=== PATIENT | female | born 1985 | race Caucasian/White ===

== ENCOUNTER 2018-04-10 19:40 | Emergency (ER) | payer SELFPAY ==
[2018-04-10 19:40] VITALS: BP 146/94; PULSE 92; RESP 18; TEMP 36.7; O2SAT 95; BMI 37.5
--- NOTE | 2018-04-10 21:09 | ED.VISSUMM ---
- ER Visit Summary Date of Service: 04/10/18 Chief Complaint: exposure to a rabid bat History of Present Illness: The patient is a 33yF who presents with family for rabies prophylaxis after exposure to a bat that tested positive for rabies. On Saturday (three days prior), the family found a bat in the common bathroom, with all family members having been in the bathroom with the bat at some point. Bat was caught by a household member and sent for testing, which returned positive for rabies. Patient has no known bite gibbons. Patient has complaint of mild headaches since exposure, which she attributes to stress. Physical Examination: Vital signs reviewed. Patient afebrile and hemodynamically stable. Well-nourished well-developed sitting in the exam room, no distress. Skin warm and dry, no rash noted. Heart regular rate and rhythm without murmur. Lungs are clear to auscultation bilaterally. No focal neuro deficits. Remainder of exam unremarkable. Test Results: [] Emergency Department Course and Treatment: Given the exposure to a rabid bat in the same room/house, patient received rabies immunoglobulin and the first of the vaccine series. Instructions given for the remainder of the vaccination series. Patient discharged home. Treatment Plan: [] Disposition: discharge home Impression: Exposure to rabid bat, administration of rabies IgG and administration of Day 0 vaccine This note was generated with [employer] dictation software. It may contain incorrect words, spelling, and punctuation that were not noted in review of the chart prior to signing ED Disposition - Plan for ED Patient: Disposition: Home or Assisted Living Chief Complaint: Bite Instructions: Rabies Immune Globulin (Human) Solution for injection, Animal Bites and Scratches Referrals: Nga Austin DO [Primary Care Provider] - As Needed Additional Instructions: Make sure to complete the entire rabies vaccination series as you were instructed and as outlined on your paperwork. If you have any worsening of your condition or any new concerning symptoms, please return immediately to the emergency department for another evaluation.
--- NOTE | 2018-04-10 21:09 | ED.DEP ---
ED Disposition - Plan for ED Patient: Disposition: Home or Assisted Living Chief Complaint: Bite Instructions: Animal Bites and Scratches, Rabies Immune Globulin (Human) Solution for injection Referrals: Nga Austin DO [Primary Care Provider] - As Needed Additional Instructions: Make sure to complete the entire rabies vaccination series as you were instructed and as outlined on your paperwork. If you have any worsening of your condition or any new concerning symptoms, please return immediately to the emergency department for another evaluation.
[2018-04-10] MEDS: Rabies Vaccine,Human Diploid 2.5 UNITS Vial IM (21:58)
[2018-04-10] MEDS: Rabies Immune Globulin 150 UNITS/ML 2170 UNITS IM (22:01)
[2018-04-10 22:43] VITALS: BP 138/80; PULSE 78; RESP 16; O2SAT 97
== END 2018-04-10 22:44 | disposition home or self-care (01) ==
PROVIDERS: Emergency Provider Emergency Medicine; Family Provider Family Medicine; PCP Family Medicine
DX: Z20.3 Contact with and (suspected) exposure to rabies (principal); R51 Headache; F41.9 Anxiety disorder, unspecified; F32.9 Major depressive disorder, single episode, unspecified; Z79.899 Other long term (current) drug therapy
CPT/HCPCS: 90375; 90675; 99281

== ENCOUNTER → 2018-04-13 13:20 | Outpatient (CLI) | payer SELFPAY ==
[2018-04-13] MEDS: Rabies Vaccine,Human Diploid 2.5 UNITS Vial IM (13:11)
== END ==
PROVIDERS: Family Provider Family Medicine; PCP Family Medicine
DX: Z23 Encounter for immunization (principal)
CPT/HCPCS: 90675

== ENCOUNTER 2018-04-17 09:18 | Outpatient (CLI) | payer OTHER, SELFPAY ==
[2018-04-17 09:32] VITALS: BP 129/74; PULSE 68; RESP 15; TEMP 36.3; O2SAT 98; BMI 36.4
[2018-04-17] MEDS: Rabies Vaccine,Human Diploid 2.5 UNITS Vial IM (10:53)
== END 2018-04-17 11:13 | disposition home or self-care (01) ==
LOC: ED 12:36
PROVIDERS: Family Provider Family Medicine; PCP Family Medicine
DX: Z23 Encounter for immunization (principal)
CPT/HCPCS: 90675; 96372

== ENCOUNTER → 2018-04-24 21:25 | Outpatient (CLI) | payer SELFPAY ==
[2018-04-24 20:47] VITALS: BP 120/75; PULSE 82; RESP 18; TEMP 36.7; O2SAT 99; BMI 33.4
[2018-04-24] MEDS: Rabies Vaccine,Human Diploid 2.5 UNITS Vial IM (21:49)
== END ==
PROVIDERS: Family Provider Family Medicine; PCP Family Medicine; Visit Provider Emergency Medicine
DX: Z23 Encounter for immunization (principal)
CPT/HCPCS: 90675

== ENCOUNTER → 2019-01-07 | Outpatient (CLI) | payer MEDICAID, SELFPAY ==
[2019-01-07 12:41] LABS: Absolute Lymphocyte Count 2.44 X10^3/ul (0.83-4.51); Absolute Neutrophil Count 4.6 X10^3/uL (2.0-7.7); Basophil# 0.02 X10^3/uL; Basophil% 0.3 % (0-1); Eosinophil# 0.35 X10^3/uL; Eosinophils% 4.4 % (0-5); Hematocrit 41.8 % (37-47); Hemoglobin 13.9 g/dl (12.0-15.0); Lymphocyte # 2.44 X10^3/ul (4.0); Lymphocyte % 30.7 % (19-41); Mean Corp Hgb Conc 33.3 g/gl (32-36); Mean Corpuscular Hgb 27.8 pg (27.0-32.0); Mean Corpuscular Volume 83.6 fL (81-99); Mean Platelet Vol. 9.7 fl (6.2-12.0); Monocyte# 0.52 X10^3/uL; Monocyte% 6.5 % (0-10); Platelet Count 358 K/mm3 (150-450); RBC Distribution Width SD 39.6 fl (35.1-43.9); White Blood Count 7.9 K/mm3 (4.4-11.0)
[2019-01-07 12:50] LABS: POSITIVE COUNT NO; POSITIVE DIFFERENTIAL NO; POSITIVE MORPHOLOGY NO
[2019-01-07 12:53] LABS: hCG Titer Quant., Serum < 1 mIU/mL (1-3)
[2019-01-07 12:59] LABS: Progesterone Level 0.43 ng/mL (See Comment)
[2019-01-07 13:00] LABS: Estradiol 32.6 pg/mL; Follicle Stimulating Hormone 8.5 mIU/mL; Free T3 2.6 pg/mL (2.18-3.98); Luteinizing Hormone 9.9 mIU/mL; T4 Free Direct 0.79 ng/dL (0.76-1.46); Thyroid Stim Hormone (TSH) 2.28 uIU/mL (0.358-3.74)
== END | disposition home or self-care (01) ==
PROVIDERS: Family Provider Family Medicine; PCP Family Medicine; Visit Provider Family Medicine
DX: N92.0 Excessive and frequent menstruation with regular cycle (principal); N93.8 Other specified abnormal uterine and vaginal bleeding; R53.83 Other fatigue
CPT/HCPCS: 36415; 82670; 83001; 83002; 84144; 84439; 84443; 84481; 84702; 85025

== ENCOUNTER → 2019-01-14 | Outpatient (CLI) | payer MEDICAID, SELFPAY ==
--- NOTE | 2019-01-14 12:24 | US_ITS ---
STUDY: ULTRASOUND OF THE FEMALE PELVIS - COMPLETE REASON FOR EXAM: Female, 33 years old. Heavy bleeding LMP: 11/17/2018 TECHNIQUE: Transabdominal and Transvaginal TECHNICAL QUALITY: Adequate. COMPARISON: None. FINDINGS: The uterus is anteverted and is in a midline position. The uterus measures 7.9 x 4.4 x 3.4 cm. Normal uterine cervix. The endometrium measures 7 mm in thickness, and is hyperechoic. There is no demonstrated endometrial mass. There is no demonstrated myometrial mass. I.U.D. - The patient does not have an I.U.D. The right ovary is visualized. The right ovary measures 3.3 x 2.9 x 2.3 cm. There is no right ovarian cyst or ovarian mass. There is no visualized right adnexal mass or complex lesion. There is normal arterial and normal venous vascularity. The left ovary is visualized. The left ovary measures 3.6 x 2.3 x 1.8 cm. There is no left ovarian cyst or ovarian mass. There is no visualized left adnexal mass or complex lesion. There is normal arterial and normal venous vascularity. There is minimal fluid in the cul-de-sac. The bladder is sonographically normal US/Pelvic (Non ) IMPRESSION: No suspicious sonographic findings Electronically Signed: Cj Alonso MD at 21:15 EDT , Service support ,
--- NOTE | 2019-01-14 12:47 | US_ITS ---
STUDY: ULTRASOUND OF THE FEMALE PELVIS - COMPLETE REASON FOR EXAM: Female, 33 years old. Heavy bleeding LMP: 11/17/2018 TECHNIQUE: Transabdominal and Transvaginal TECHNICAL QUALITY: Adequate. COMPARISON: None. FINDINGS: The uterus is anteverted and is in a midline position. The uterus measures 7.9 x 4.4 x 3.4 cm. Normal uterine cervix. The endometrium measures 7 mm in thickness, and is hyperechoic. There is no demonstrated endometrial mass. There is no demonstrated myometrial mass. I.U.D. - The patient does not have an I.U.D. The right ovary is visualized. The right ovary measures 3.3 x 2.9 x 2.3 cm. There is no right ovarian cyst or ovarian mass. There is no visualized right adnexal mass or complex lesion. There is normal arterial and normal venous vascularity. The left ovary is visualized. The left ovary measures 3.6 x 2.3 x 1.8 cm. There is no left ovarian cyst or ovarian mass. There is no visualized left adnexal mass or complex lesion. There is normal arterial and normal venous vascularity. There is minimal fluid in the cul-de-sac. The bladder is sonographically normal US/Transvaginal Non- IMPRESSION: No suspicious sonographic findings Electronically Signed: Cj Alonso MD at 21:15 EDT , Service support ,
== END | disposition home or self-care (01) ==
LOC: US 12:23
PROVIDERS: Family Provider Family Medicine; PCP Family Medicine; Referring Provider Family Medicine; Visit Provider Family Medicine
DX: N92.0 Excessive and frequent menstruation with regular cycle (principal); N93.8 Other specified abnormal uterine and vaginal bleeding
CPT/HCPCS: 76830; 76856; 93976

== ENCOUNTER → 2019-07-03 14:09 | Outpatient (CLI) | payer MEDICAID, SELFPAY ==
[2019-07-03 10:47] VITALS: BMI 38.2
[2019-07-03 14:39] LABS: Red Blood Cells-Urine 0 SEEN /hpf (0-5)
[2019-07-03 15:02] LABS: Color, Urine Yellow (Yellow); Glucose, Dipstick Normal (Normal); Ketone-Dipstick Negative (Negative); Leukocyte Esterase-Dipstick 25 /ul (Negative); Nitrite-Dipstick Negative (Negative); Occult Blood-Urine Negative /ul (Negative); Protein-Dipstick Negative (Negative); Urine Bilirubin Dipstick Negative (Negative); Urine Clarity Sl. Cloudy (Clear); Urine Urobilinogen Normal (Normal)
[2019-07-03 15:09] LABS: Bacteria 1+ /hpf (None Seen); Mucous, Urine 1+ /hpf (<or=2+); Squamous Epithelial Cells - UA 0-5 SEEN /hpf (5-10); White Blood Cells 0-5 SEEN /hpf (0-5)
== END ==
PROVIDERS: Family Provider Family Medicine; PCP Family Medicine; Referring Provider Nurse Practitioner Family; Visit Provider Nurse Practitioner Family
DX: M54.5 Low back pain (principal)
CPT/HCPCS: 81001; 87086; 87088

== ENCOUNTER → 2019-07-13 13:00 | Outpatient (CLI) | payer MEDICAID, SELFPAY ==
[2019-07-09 12:09] VITALS: BMI 38.2
--- NOTE | 2019-07-13 13:03 | RAD_ITS ---
STUDY: X-RAY - LUMBAR SPINE REASON FOR EXAM: Female, 34 years old. Pain. TECHNIQUE: 5 view(s) of the lumbar spine were obtained. COMPARISON: None FINDINGS: Normal lumbar lordosis. There is no substantial scoliosis. There is a normal alignment of the vertebrae. Normal vertebral bodies and endplates. Normal disc space heights. There is no demonstrated fracture. There is no demonstrated spondylolysis of the pars interarticulares. The soft tissue structures are unremarkable. RAD/L/S Spine Min 4 Views IMPRESSION: Normal x-ray examination of the lumbar spine. Electronically Signed: Jillian Fierro MD at 2:33 EST , Service support ,
--- NOTE | 2019-07-13 13:03 | RAD_ITS ---
STUDY: X-RAY - THORACIC SPINE REASON FOR EXAM: Female, 34 years old. Pain. TECHNIQUE: 2 view(s) of the thoracic spine were obtained. COMPARISON: None. FINDINGS: Normal kyphosis of the thoracic spine. There is no substantial scoliosis. Normal thoracic vertebrae and endplates. Normal disc space heights. The soft tissue structures are unremarkable. RAD/Thoracic Spine 3 Views IMPRESSION: Normal x-ray examination of the thoracic spine. Electronically Signed: Jillian Fierro MD at 2:33 EST , Service support ,
== END ==
PROVIDERS: Family Provider Family Medicine; PCP Family Medicine; Referring Provider Family Medicine; Visit Provider Family Medicine
DX: M54.5 Low back pain (principal)
CPT/HCPCS: 72072; 72110

== ENCOUNTER 2019-09-08 10:30 | Outpatient (RCR) | payer MEDICAID, SELFPAY ==
[2019-07-09 12:09] VITALS: BMI 38.2
--- NOTE | 2019-07-23 10:57 | HP.PTEVAL_ITS ---
Patient's Visit Information LAURA MANE is a 34 year old F referred to Physical Therapy by Nga Austin DO with a diagnosis of LBP. Date of Evaluation: 07/23/19 Physical Therapist: Gypsy Mccurdy, PT, Cert MDT - Visit Plan Frequency: 2-3x /Week Duration: 4-6 Weeks Plan: AQUATIC THERAPY FOR PAIN RELIEF, POSTURE CORRECTION/STRENGTHENING, INSTRUCTION IN APPROPRIATE BODY MECHANICS AND ACTIVITY MODIFICATIONS. DLS STARTING WITH A NEUTRAL SPINE PROGRESSING ROM TOLERATED. NALLELY LE ROM, STRETCHING AND STRENGTHENING. HEP INSTRUCTION. 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 A LOT OF TRANSFERS. 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 CHILDREN ARE 4 AND 14. Disability: NO. Present symptoms: LOW BACK PAIN THAT RADIATES UP BACK AND DOWN HER LEGS. NALLELY BUTTOCK, NALLELY THIGH LEFT > RIGHT. NALLELY LE NUMBNESS AND TINGLING AND RLS. Present since: ABOUT A YEAR AGO. Pain Scale: WORST 9/10, L EAST 3/10. Currently: 6/10. Commenced as a result of: NO APPARENT REASON. Symptoms at onset: LOW BACK. Worse: PICKING UP 5 YEAR OLD, CARETAKING OF 89 YEAR OLD, BENDING, LIFTING, PUSHING, PULLING. Better: PUSHING ON LOW BACK, MORE ERECT POSTURE WITH SUPPORT. REST FROM WORK (WORKS 7 DAYS A WEEK). Disturbed sleep: YES. Previous history/Previous treatment: LOW BACK PAIN SINCE A TEENAGER. PRESCRIPTION MEDICATIONS INCLUDING STEROIDS. NO BACK SURGERY, PT, INJECTIONS OR CHIROPRACTOR. MAILY SELF MANAGED. Coughing/sneezing/straining: POSITIVE. Gait: NORMAL. Difficulty initiating urinatin: YES - SOMETIMES FOR ABOUT A YEAR - PATIENT REPORTS SHE WILL LET HER DOCTOR KNOW. Accidents: NO. Unexplained weight loss: NO. Imaging: LUMBAR X-RAYS LAST WEEK - NORMAL. PMH: UTERINE WALL THICKENING - UNDER PHYSICIAN CARE. ANXIETY AND DEPRESSION. - Objective Sitting/Standing Posture: POOR. Lordosis: NORMAL. Lateral shift: NO. Relevant shift: N/A. Active Correction of posture: BETTER. Other Observations: INDEP GAIT AND TRANSFERS. Motor deficit: NALLELY LE'S 5/5. Sensory deficit: NALLELY LE LIGHT TOUCH SENSATION INTACT AND SYMMETRICAL BUT REPORTS NALLELY ANKLE TINGLING. ROM deficit: NALELLY LE'S WFL'S. Reflexes: NALLELY LE'S 2/3. Dural Signs: NEGATIVE NALLELY LE'S. Lumbar mvmt loss: flex - NIL - INCREASED PAIN GOING DOWN AND UP. ext - MIN - INCREASES BACK PAIN. R SG - NIL. L SG - NIL. Core strength: POOR. Palpation: TENDERNESS THROUGHOUT LOWER THORACIC AND LUMBAR REGIONS INTO SACRAL, PELVIC AND BUTTOCK REGIONS. - Goals Goal 1:: DECREASE C/O BACK AND NALLELY LE SX'S. Goal Time Frame: 4-6 Weeks Goal 2:: IMPROVE BENDING, REACHING, LIFTING, PUSHING, PULLING, SLEEP, SOCIAL LIFE AND WORK FUNCTION Goal Time Frame: 4-6 Weeks Goal 3:: INSTRUCT IN PROPHYLAXIS Goal Time Frame: 4-6 Weeks - Rehabilitation Potential Rehabilitation Potential: Fair - Anticipated Interventions Patient/Client Instruction: Educate patient on: Condition, Plan of Care, Risk Factors, Benefits of Fitness Program For the Purpose of:: To improve self management Therapeutic Exercise to Include: Strength training, Body mechanics, Postural training, Dynamic Lumbar Stabilization For the Purpose of:: To decrease pain, To improve muscle performance and motor function, To increase tolerance to activity/condition/position, To improve ability of physical actions for home/community/work/leisure, To improve gait and locomotor functions Thank you for the opportunity to evaluate your patient. For Medicare and Medicare HMO plans, please review the plan of care and approve it. It will need to be FAXED BACK to us at [phone] for Medicare purposes. For Medicare only, by signing this I certify the plan of care. Please let me know if there are questions or concerns regarding this plan of care. Physician Signature:_ Date:
--- NOTE | 2019-08-24 12:03 | HP.PTREVAL ---
Nga Austin, DO, It has been my pleasure to treat LAURA MANE over the last 10 visits for LBP. Please see the progress note below for an update on the physical therapy plan of care! Subjective: PATIENT REPORTS THERAPY HAS HELPED. 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 REALLY PUSHED HERSELF TODAY AND HURTING. TOOK [employer]ARY [employer]ICE DECORATIONS DOWN FOR CLIENT TODAY WHICH INVOLVED CARRYING TREES ETC DOWNSTAIRS AND THAT CAUSED SOME PAIIN. BEFORE TODAY WAS DOWN TO 1/2 MUSCLE RELAXER A DAY. PATIENT REPORTS SHE DOESN'T HAVE SPINE PAIN ALL THE WAY UP AND DOWN HER BACK LIKE SHE DID BEFORE. Objective/Function: PATIENT IS IMPROVING. SHE IS BECOMING INDEP WITH A POOL PROGRAM AND APPEARS READY TO START PROGRESSING TO LAND WELL. SHE IS LESS TENDER, HAS IMRPOVED PAINFREE LUMBAR ROM AND HER PAINFREE FUNCTION IS IMRPOVING. SHE STILL HAS POOR CORE STRENGTH AND COULD BENEFIT IN FURTHER INSTRUCTION TO PROGRESS CURRENT PROGRAM SAFELY. Lumbar mvmt loss: flex - NIL - MILD LBP ON RETURN. ext - MIN - INCREASES BACK PAIN. R SG - NIL. L SG - NIL. Core strength: POOR. Palpation: MILD RIGHT UPPER LUMBAR PARASPINAL TENDERNESS. Plan Plan: CONTINUE PT DECREASING TO ONE TIME A WEEK IN THE POOL AND STARTING LAND PT ONE TIME A WEEK TO HELP PATIENT TRANSITION TO SAFE INDEP EX WITH MEMBERSHIP. PATIENT IS AGREE ABLE. (MEMBERSHIP FORM COMPLETED FOR PATIENT BY THIS PT). Goals Goal 1:: DECREASE C/O BACK AND NALLELY LE SX'S. Goal Time Frame: 4-6 Weeks Goal Progress: Progressing Goal 2:: IMPROVE BENDING, REACHING, LIFTING, PUSHING, PULLING, SLEEP, SOCIAL LIFE AND WORK FUNCTION Goal Time Frame: 4-6 Weeks Goal Progress: Progressing Goal 3:: INSTRUCT IN PROPHYLAXIS Goal Time Frame: 4-6 Weeks Goal Progress: Progressing Anticipated Interventions Patient/Client Instruction: Educate patient on: Condition, Plan of Care, Risk Factors, Benefits of Fitness Program For the Purpose of:: To improve self management Therapeutic Exercise to Include: Strength training, Body mechanics, Postural training, Dynamic Lumbar Stabilization For the Purpose of:: To decrease pain, To improve muscle performance and motor function, To increase tolerance to activity/condition/position, To improve ability of physical actions for home/community/work/leisure, To improve gait and locomotor functions Please do not hesitate to contact me at [phone] by phone or if you have questions or concerns regarding this new plan of care! Sincerely, Gypsy Mccurdy PT, Cert MDT
--- NOTE | 2019-10-23 13:57 | HP.PTDCSUM ---
HP - PT D/C Summary It has been my pleasure to treat LAURA MANE referred by Nga Austin DO, with the diagnosis of LBP for a total of 12 visit(s). Discharge Date: Please see the following information for a summary of their discharge status. - Subjective Subjective: Pt states she's not too bad. No pain or new c/o. - Pain Lumbar Spine Pain Intensity (Out of 10): 0 left shoulder girdle Pain Intensity (Out of 10): 0 - Overall Improvement % Improvement: 60 - Objective Objective/Function: Pt did well with initial land ex's. Works hard and completes without pain. Some hip flexor tightness noted with deadbugs. - Goals Goal 1:: DECREASE C/O BACK AND NALLELY LE SX'S. Goal Progress: Progressing Goal 2:: IMPROVE BENDING, REACHING, LIFTING, PUSHING, PULLING, SLEEP, SOCIAL LIFE AND WORK FUNCTION Goal Progress: Progressing Goal 3:: INSTRUCT IN PROPHYLAXIS Goal Progress: Progressing - Plan Plan: Progressing to I pool program and land PT. - D/C Information If there are questions or concerns regarding this patient's physical therapy, please feel free to call me at [phone]. Thank you for the referral of this patient. Sincerely, Gypsy Mccurdy, PT, Cert MDT
== END 2019-09-08 19:00 | disposition home or self-care (01) ==
LOC: PT 10:30
PROVIDERS: Family Provider Family Medicine; PCP Family Medicine; Referring Provider Family Medicine; Visit Provider Family Medicine
DX: M54.5 Low back pain (principal)
CPT/HCPCS: 97110; 97113; 97162; 97530

== ENCOUNTER → 2019-10-08 14:20 | Outpatient (CLI) | payer MEDICAID, SELFPAY ==
[2019-10-06 10:33] VITALS: BMI 38.2
[2019-10-08 15:34] LABS: Absolute Lymphocyte Count 3.05 X10^3/uL (0.83-4.51); Absolute Neutrophil Count 7.3 X10^3/uL (2.0-7.7); Basophil# 0.04 X10^3/uL; Basophil% 0.4 % (0-1); Eosinophil# 0.28 X10^3/uL; Eosinophils% 2.5 % (0-5); Hematocrit 41.2 % (37-47); Hemoglobin 13.2 g/dL (12.0-15.0); Lymphocyte # 3.05 X10^3/ul (4.0); Lymphocyte % 27.1 % (19-41); Mean Corpuscular Volume 87.5 fL (81-99); Mean Platelet Vol. 9.4 fl (6.2-12.0); Monocyte# 0.57 X10^3/uL; Monocyte% 5.1 % (0-10); NRBC Flagged by Analyzer 0 % (0-5); Neutrophil # 7.27 X10^3/uL (2.7-7.7); Neutrophil % 64.6 % (47-70); Platelet Count 358 K/mm3 (150-450); RBC Distribution Width CV 12.3 % (11.6-14.6); RBC Distribution Width SD 39.8 fl (35.1-43.9); Red Blood Count 4.71 M/mm3 (4.2-5.4); White Blood Count 11.2 K/mm3 (4.4-11.0)
[2019-10-08 17:23] LABS: Thyroid Stim Hormone (TSH) 1.86 uIU/mL (0.358-3.74)
[2019-10-13 11:19] LABS: Vitamin D,25 Hydroxy 14.8 ng/mL
== END ==
PROVIDERS: PCP Family Medicine; Visit Provider Family Medicine
DX: F32.9 Major depressive disorder, single episode, unspecified (principal)
CPT/HCPCS: 36415; 82306; 84443; 85025

== ENCOUNTER → 2020-03-22 | Outpatient (CLI) | payer MEDICAID, SELFPAY ==
[2020-03-22 10:51] VITALS: BMI 38.2
[2020-03-26 21:06] LABS: HPV APTIMA, High Risk Negative (Negative)
== END | disposition home or self-care (01) ==
LOC: LABSPEC 15:55
PROVIDERS: PCP Family Medicine; Referring Provider Nurse Practitioner Women's Health; Visit Provider Nurse Practitioner Women's Health
DX: Z12.4 Encounter for screening for malignant neoplasm of cervix (principal)
CPT/HCPCS: 87624; 88175; G0145

== ENCOUNTER 2021-08-03 23:31 | Emergency (ER) | payer MEDICAID, SELFPAY ==
[2021-08-03 23:32] VITALS: BP 165/102; PULSE 87; RESP 24; TEMP 36.1; O2SAT 97; BMI 40.1
--- NOTE | 2021-08-03 23:43 | EDS_ITS ---
HPI History of Present Illness Chief Complaint: Nausea/Vomiting Informant: patient Narrative Narrative: 36-year-old female presenting to the emergency room with vomiting. Patient is Covid positive and unvaccinated. She states that she continues to have fevers and headache and body aches. She states her diarrhea has improved. Unfortunately she is started vomiting yesterday and today. She states that she has been able to keep her medications down today. No rashes. [facility] Medical History (Updated 08/04/21 @ 03:[address] Mane Gonzalez DO) Anxiety Depression Insomnia Restless leg syndrome Home Medications venlafaxine 37.5 mg capsule,extended release 24 hr 225 mg PO DAILY cap 02/04/19 [History Last Taken Unknown] cetirizine 10 mg capsule 10 mg PO DAILY 03/22/20 [History Last Taken Unknown] cholecalciferol (vitamin D3) 50 mcg (2,000 unit) capsule 50 mcg PO DAILY 03/22/20 [History Last Taken Unknown] duloxetine 20 mg capsule,delayed release 60 mg PO .q hs cap 03/22/20 [History Last Taken Unknown] lorazepam 1 mg tablet 2 mg PO BID tab 03/22/20 [History Last Taken Unknown] meloxicam 7.5 mg tablet 7.5 mg PO DAILY 03/22/20 [History Last Taken Unknown] norgestimate 0.25 mg-ethinyl estradiol 35 mcg tablet 1 tab PO QDAY #84 tab 03/22/20 [Rx Last Taken Unknown] pramipexole 0.5 mg tablet 0.5 mg PO QHS 03/22/20 [History Last Taken Unknown] famotidine 20 mg PO BID #28 tablet 08/04/21 [Rx Last Taken Unknown] ondansetron 4 mg PO Q6H PRN PRN #15 tab 08/04/21 [Rx Last Taken Unknown] potassium chloride 40 meq PO DAILY 5 Days #10 tab 08/04/21 [Rx Last Taken Unknown] sulfamethoxazole-trimethoprim 1 tab PO BID #14 tablet 08/04/21 [Rx Last Taken Unknown] Allergy/AdvReac Type Severity Reaction Status Date / Time clarithromycin [From Biaxin] Allergy Rash Verified 08/04/21 00:26 Family History Mother Anxiety Grandfather Heart disease Diabetes Alzheimer's dementia Grandmother Diabetes Alzheimer's dementia Aunt Colon cancer Uncle Colon cancer Social History Smoking Status: Never smoker Electronic Cigarette Use: with nicotine alcohol intake: never substance use type: does not use caffeine: Yes what type of physical activity do you participate in: walking frequency: 5-6 times per week seatbelt use: always do you feel safe at home: Yes additional social history: Life Partner-Unemployed ROS ROS ED Constitutional Constitutional ED: Reports chills, fever(s) and sweats; Denies weight loss Eyes Eyes: Denies change in vision or diplopia ENT ENT ED: Reports rhinorrhea; Denies ear pain or sore throat Cardiovascular Cardiovascular: Denies chest pain, orthopnea, palpitations or racing heartbeat Respiratory/Chest Respiratory/Chest: Reports cough; Denies dyspnea or orthopnea Gastrointestinal Gastrointestinal: Reports diarrhea, nausea and vomiting; Denies abdominal pain Genitourinary Genitourinary ED: Denies dysuria, hematuria or urinary frequency Musculoskeletal Musculoskeletal: Reports back pain and myalgias; Denies arthralgias Integumentary Denies abscess or rash Neurologic Neurologic: Reports headache(s); Denies weakness Psychiatric Psychiatric: Denies anxiety, depression, suicidal ideation or suicidal thoughts Endocrine Endocrinology: Denies polydipsia, polyphagia or polyuria Allergic/Immunologic Allergic/Immunologic ED: Denies mouth swelling, tongue swelling or urticaria EXAM Physical Exam Const Vital Signs: 08/03/21 23:32 08/04/21 03:08 Temperature 96.9 F L Temperature Source Temporal Pulse Rate 87 89 Respiratory Rate 24 H 18 Blood Pressure 165/102 H 136/93 H Blood Pressure Mean 123 107 Pulse Ox 97 99 Oxygen Delivery Method Room Air Room Air Positive well nourished, well developed and obese General Appearance ED: well developed Nutritional Appearance: obese HEENT Reports normocephalic, head/scalp atraumatic, TM's clear and moist mucous membranes Negative for trauma Tympanic Membrane ED: Yes TM's clear Eyes PERRL and EOMs intact bilaterally Neck no lymphadenopathy, supple and no JVD Resp normal respiratory effort and clear to auscultation bilaterally Cardio regular rate, regular rhythm and no murmurs GI normal to inspection, nondistended, normoactive bowel sounds and non-tender Palpation: soft Back/Spine no CVA tenderness and normal ROM Extremity normal to inspection General Extremety ED: Negative for edema General Extremity: Negative for edema Neuro oriented x3 and CN's II-XII intact bilaterally Sensorium / Orientation: alert Motor Exam: strength 5/5 throughout Psych mental status grossly normal Mood & Affect: Negative for depressed or tearful Skin no rashes or lesions noted and no wounds MDM MDM MDM Narrative Medical decision making narrative: Patient received Zofran Toradol and a liter of IV fluids. Repeat examination finds the patient to be complaining more of low back pain. Is worse with movement and with touch and is bilateral in the lumbar paraspinal musculature. Patient states that typically she takes meloxicam and has a muscle relaxant but has not been able to take it. Her white count is elevated at 15.3 potassium noted to be low at 2.9. Creatinine 1.21. Urinalysis showed specific gravity of 1.02+ leukocyte esterase but negative nitrates. 25-50 white cells with 3+ bacteria but there is also some squamous epithelial cells of 5-10 suggesting contamination. This was sent for culture. Patient was received a dose of Valium for the low back pain. Repeat examination after that finds the patient to be experiencing some GERD. She states that the GERD has been being treated at home with some Pepto-Bismol but has not been effective. Give her a dose of Protonix start her on omeprazole. Potassium supplementation short-term. Also write for some Zofran and some Bactrim until the culture comes back. Lab Data Attestation: I reviewed the patient's lab results. Labs: Laboratory Results - last 24 hr 08/04/21 08/04/21 08/04/21 00:35 00:35 03:05 WBC 15.3 H RBC 5.19 Hgb 14.7 Hct 44.5 MCV 85.7 MCH 28.3 MCHC 33.0 RDW Std Deviation 35.9 RDW Coeff of Tanja 11.6 Plt Count 541 H MPV 8.7 Immature Gran % (Auto) 0.600 Neut % (Auto) 71.2 H Lymph % (Auto) 18.7 L [place] % (Auto) 8.7 Eos % (Auto) 0.4 Baso % (Auto) 0.4 Absolute Neuts (auto) 10.9 H Absolute Lymphs (auto) 2.86 Nucleated RBC % 0 Sodium 140 Potassium 2.9 L Chloride 103 Carbon Dioxide 30.0 Anion Gap 7 BUN 8 Creatinine 1.21 H Estim Creat Clear Calc 63.11 Est GFR (MDRD) Af Amer 65 Est GFR (MDRD) Non-Af 54 L BUN/Creatinine Ratio 6.6 L Glucose 91 Calcium 9.8 Total Bilirubin 0.60 AST 33 ALT 70 H Alkaline Phosphatase 145 H Total Protein 9.2 H Albumin 3.4 Globulin 5.8 H Albumin/Globulin Ratio 0.6 L Lipase 174 Urine Color Yellow Urine Clarity Sl. Cloudy Urine pH 6.0 Ur Specific [place] 1.020 Urine Protein 30 H Urine Glucose (UA) Normal Urine Ketones 5 H Urine Occult Blood 25 H Urine Nitrite Negative Urine Bilirubin Negative Urine Urobilinogen 1 H Ur Leukocyte Esterase 500 H Urine RBC 0-5 SEEN Urine WBC 25-50 SEEN Ur Squamous Epith Cells 5-10 SEEN Ur Transition Epith Cell 0-5 SEEN Urine Bacteria 3+ Urine Mucus 3+ Discharge Plan Triage Chief Complaint: Nausea/Vomiting ED Provider: Mane Gonzalez Dx/Rx/DC Orders Clinical Impression: COVID-19, Acute UTI, Vomiting, Acute hypokalemia, GERD (gastroesophageal reflux disease) Instructions: Coronavirus Disease 2019 (COVID-19): Caring for Yourself or Oth ers, ED Vomiting (Adult) Prescriptions: New famotidine [famotidine] 20 MG tablet 20 mg PO BID Qty: 28 RF: 0 ondansetron [ondansetron] 4 MG tablet 4 mg PO Q6H PRN PRN (Reason: Nausea) Qty: 15 RF: 0 potassium chloride 20 mEq tablet extended release 40 meq PO DAILY 5 Days Qty: 10 RF: 0 sulfamethoxazole-trimethoprim [sulfamethoxazole-trimethoprim] 1 TABLET tablet 1 tab PO BID Qty: 14 RF: 0 No Action lorazepam [Ativan] 1 mg tablet 2 mg PO BID RF: 0 pramipexole [Mirapex] 0.5 mg tablet 0.5 mg PO QHS RF: 0 meloxicam [Mobic] 7.5 mg tablet 7.5 mg PO DAILY RF: 0 cholecalciferol (vitamin D3) 50 mcg (2,000 unit) capsule 50 mcg PO DAILY RF: 0 Zyrtec 10 mg capsule 10 mg PO DAILY RF: 0 duloxetine 20 mg capsule,delayed release(DR/EC) 60 mg PO .q hs RF: 0 norgestimate-ethinyl estradiol [Sprintec (28)] 0.25-35 mg-mcg tablet 1 tab PO QDAY Qty: 84 RF: 4 venlafaxine 37.5 mg capsule,extended release 24hr 225 mg PO DAILY RF: 0 Primary Care Provider: Care Physician,No Primary Referrals: Care Physician,No Primary [Primary Care Provider] - Julio Snyder TELECOM ANALYST, TELECOM ANALYST-C [Nurse Practitioner] - As Needed Disposition Disposition: Home, Self Care
[2021-08-04] MEDS: 0.9% Normal Saline 1,000 ML 1000 ML IV (00:35)
[2021-08-04] MEDS: Ketorolac 30 MG/ML Syringe IV (00:35)
[2021-08-04] MEDS: Ondansetron 4 MG/2 ML Vial IV (00:35)
[2021-08-04 00:49] LABS: Absolute Lymphocyte Count 2.86 X10^3/uL (0.83-4.51); Absolute Neutrophil Count 10.9 X10^3/uL (2.0-7.7); Basophil# 0.06 X10^3/uL; Basophil% 0.4 % (0-1); Eosinophil# 0.06 X10^3/uL; Eosinophils% 0.4 % (0-5); Hematocrit 44.5 % (37-47); Hemoglobin 14.7 g/dL (12.0-15.0); Lymphocyte # 2.86 X10^3/ul (0.83-4.51); Lymphocyte % 18.7 % (19-41); Mean Corpuscular Hgb 28.3 pg (27.0-32.0); Mean Corpuscular Volume 85.7 fL (81-99); Mean Platelet Vol. 8.7 fl (6.2-12.0); Monocyte# 1.33 X10^3/uL; Monocyte% 8.7 % (0-10); NRBC Flagged by Analyzer 0 % (0-5); Neutrophil # 10.89 X10^3/uL (2.7-7.7); Neutrophil % 71.2 % (47-70); Platelet Count 541 K/mm3 (150-450); RBC Distribution Width CV 11.6 % (11.6-14.6); RBC Distribution Width SD 35.9 fl (35.1-43.9); Red Blood Count 5.19 M/mm3 (4.2-5.4); White Blood Count 15.3 K/mm3 (4.4-11.0)
[2021-08-04 01:08] LABS: ALB/GLOB Ratio 0.6 RATIO (0.9-2.4); AST(SGOT) 33 U/L (15-37); Alanine Aminotransfer ALT/SGPT 70 U/L (13-56); Albumin, Serum 3.4 g/dL (3.2-5.0); Alkaline Phosphatase 145 U/L (45-117); Anion Gap 7 (5-15); BUN 8 mg/dL (7-18); BUN/Creat Ratio 6.6 RATIO (10-20); Calcium,Total 9.8 mg/dL (8.5-10.1); Chloride 103 mmol/L (98-107); Creatinine, Serum 1.21 mg/dL (0.55-1.02); EST Glomerular Filtration Rate 54 mL/min (>60); Est Glom Filt Rate - Afr Amer 65 mL/min (>60); Estimated Creatinine Clearance 63.11 ml/min; Globulin 5.8 g/dL (2.2-4.2); Glucose 91 mg/dL (74-106); Lipase 174 U/L (73-393); Potassium 2.9 mmol/L (3.5-5.1); Protein, Total 9.2 g/dL (6.4-8.2); Sodium Level 140 mmol/L (136-145)
[2021-08-04] MEDS: diazePAM 5 MG Tablet PO (01:31)
[2021-08-04] MEDS: Potassium Chloride Oral Tablet 20 MEQ 40 MEQ PO (01:31)
[2021-08-04 03:08] VITALS: BP 136/93; PULSE 89; RESP 18; O2SAT 99
[2021-08-04 03:37] LABS: Color, Urine Yellow (Yellow); Glucose, Dipstick Normal (Normal); Ketone-Dipstick 5 mg/dl (Negative); Leukocyte Esterase-Dipstick 500 /ul (Negative); Nitrite-Dipstick Negative (Negative); Occult Blood-Urine 25 /ul (Negative); Protein-Dipstick 30 mg/dl (Negative); Urine Bilirubin Dipstick Negative (Negative); Urine Clarity Sl. Cloudy (Clear); Urine Urobilinogen 1 mg/dl (Normal)
[2021-08-04 03:45] LABS: Bacteria 3+ /hpf (None Seen); White Blood Cells 25-50 SEEN /hpf (0-5)
[2021-08-04 03:46] LABS: Mucous, Urine 3+ /hpf (<or=2+); Red Blood Cells-Urine 0-5 SEEN /hpf (0-5); Squamous Epithelial Cells - UA 5-10 SEEN /hpf (5-10); Transitional Epithelial - Ur 0-5 SEEN /hpf (0-5)
== END 2021-08-04 04:08 | disposition home or self-care (01) ==
PROVIDERS: Emergency Provider Emergency Medicine
DX: U07.1 COVID-19 (principal); N39.0 Urinary tract infection, site not specified; E87.6 Hypokalemia; K21.9 Gastro-esophageal reflux disease without esophagitis; E66.9 Obesity, unspecified; Z68.41 Body mass index [BMI] 40.0-44.9, adult; F32.A Depression, unspecified; F41.9 Anxiety disorder, unspecified; G25.81 Restless legs syndrome; G47.00 Insomnia, unspecified; Z79.899 Other long term (current) drug therapy
CPT/HCPCS: 80053; 81001; 83690; 85025; 87077; 87086; 87088; 87186; 96361; 96374; 96375; 99285; J2405

== ENCOUNTER → 2023-03-22 | Outpatient (CLI) | payer OTHER, SELFPAY ==
--- NOTE | 2023-03-22 11:46 | RAD_ITS ---
HISTORY: Work injury. TECHNIQUE: XR Spine Lumbar Min 4 Views. COMPARISON: 07/13/2019. FINDINGS: VERTEBRAE: Vertebral body heights preserved. Posterior elements appear intact. ALIGNMENT: No significant anterior or posterior subluxation. INTERVERTEBRAL DISCS: Disc spaces maintained. Chronic mild degenerative changes in the lower thoracic spine. RAD/L/S Spine Min 4 Views IMPRESSION: No acute fracture or dislocation identified in the lumbar spine. Electronically Signed: Janny Isidro MD at 12:00 EDT ,
== END | disposition home or self-care (01) ==
LOC: MTRAD 11:46
PROVIDERS: Referring Provider Physician Assistant Surgical; Visit Provider Physician Assistant Surgical
DX: S39.012A Strain of muscle, fascia and tendon of lower back, initial encounter (principal)
CPT/HCPCS: 72110

== ENCOUNTER → 2023-07-01 | Outpatient (CLI) | payer OTHER, SELFPAY ==
[2023-07-01 15:04] LABS: HIV - WCH Non-Reactive (Nonreactive); Hepatitis C Antibody Non-Reactive (Nonreactive); Syphilis Antibodies Non-reactive
[2023-07-03 06:09] LABS: HSV 1 IgG < 0.91 index (0.00-0.90); HSV 2 IgG < 0.91 index (0.00-0.90)
[2023-07-04 11:08] LABS: Chlamydia By Nucleic Acid AMP Negative (Negative); Gonococcus By Nucleic Acid AMP Negative (Negative)
== END | disposition home or self-care (01) ==
PROVIDERS: Referring Provider Nurse Practitioner Women's Health; Visit Provider Nurse Practitioner Women's Health
DX: Z20.2 Contact with and (suspected) exposure to infections with a predominantly sexual mode of transmission (principal); N89.8 Other specified noninflammatory disorders of vagina
CPT/HCPCS: 36415; 86695; 86696; 86703; 86780; 86803; 87070; 87205; 87491; 87591